=== PATIENT | male | born 2000 | race Caucasian/White ===

== ENCOUNTER 2023-12-09 01:16 | Emergency (ER) | payer SELFPAY ==
[~2023-12-09] VITALS: Ht 185.4 cm; Wt 79.4 kg
[2023-12-09 01:18] VITALS: BP 141/85; PULSE 87; RESP 20; TEMP 97.9; O2SAT 94
[2023-12-09 01:37] VITALS: BP 141/85; PULSE 87; RESP 20; TEMP 97.9; O2SAT 94
== END 2023-12-09 01:37 ==
LOC: MED 01:16
DX: F10.10 Alcohol abuse, uncomplicated (principal); V43.52XA Car driver injured in collision with other type car in traffic accident, initial encounter; Y93.89 Activity, other specified; Y92.415 Exit ramp or entrance ramp of street or highway as the place of occurrence of the external cause; Y99.8 Other external cause status
CPT/HCPCS: 99283